=== PATIENT | male | born 1995 | race Hispanic/Latino ===

== ENCOUNTER 2024-07-02 16:40 | Emergency (ER) | payer OTHER ==
[~2024-07-02] VITALS: Ht 167.6 cm; Wt 111.1 kg
[2024-07-02] MEDS: ketOROlac 60 MG VIAL (30MG/ML) IM ONE (17:30)
[2024-07-02] MEDS: DIPH,PERTUSS(ACELL),TET VAC/PF 0.5 ML VIAL IM ONE (17:30)
--- NOTE | 2024-07-02 17:46 | HMCIMG ---
TIBIA/FIBULA 2VWS LT HISTORY: Pain COMPARISON: None TECHNIQUE: 4 images of left tibia and fibula were obtained. FINDINGS: There is no acute displaced fracture or dislocation. IMPRESSION: 1. Findings as described above.
--- NOTE | 2024-07-02 17:47 | HMCIMG ---
KNEE 3VWS LT HISTORY: Pain COMPARISON: None TECHNIQUE: 3 images of left knee were obtained. FINDINGS: There is no acute displaced fracture or dislocation. Minimal degenerative changes are seen. IMPRESSION: 1. Findings as described above.
--- NOTE | 2024-07-02 17:58 | ERN ---
ED Note History of Present Illness Stated Complaint: LEG INJURY Chief Complaint: Abrasion Time Seen by MD: 16:55 Time Seen by Midlevel: 16:55 Dictation: The Patient is a 28-year-old male who presents to the emergency department with complaints of left lower leg pain after he accidentally when in through a would porch about 30 minutes prior to arrival. Patient denies any other injuries. Reports complaints of left knee pain and left lower leg pain Allergies: Coded Allergies: No Known Drug Allergies (Unverified Allergy, Unknown, 07/02/24) Past Medical History Past Medical History: No Pertinent History Surgical History: None RN Note Reviewed/Agreed w/PFSH: Yes Review of System Dictation Constitutional: Negative for fever,chills, and weight loss Eyes: Negative for injury, pain,redness, and discharge ENT: Negative for injury,pain or swelling Cardiovascular: Negative for chest pain, palpitations, and edema Respiratory: Negative for shortness of breath, cough, and wheezing, Abdomen/GI: Negative for abdominal pain, nausea, vomiting, diarrhea, and constipation Back: Negative for injury and pain : Negative for injury, bleeding and discharge MS/Extremity: Negative for injury and deformity positive for left lower leg pain Skin: Negative for rash, and discoloration positive for abrasion of left lower leg Neuro: Negative for headache, weakness, numbness, tingling, and seizure Psych: Negative for suicide ideation, homicidal ideation, and hallucinations Initial Vital Sign VS Vital Signs Date Time Temp Pulse Resp B/P (MAP) Pulse Ox O2 Delivery O2 Flow Rate FiO2 07/02/24 16:48 97.5 89 16 137/94 98 Room Air 0 Physical Exam Dictation Vital Signs reviewed General Appearance: Alert, oriented x 3, no acute distress, well developed, nourished. Head and Face: non-traumatic. Eyes: PERRL, pink conjunctivas, eyelid no trauma, anterior chamber with arcus senilis. Ears: Pinnas intact and no signs of trauma or erythema ear canals clear and no discharge TM no erythema Nose: No discharge, no bleeding. Oropharynx: Mouth normal, tongue pink. pharynx clear,no erythema, tonsils no exudates, no abscesses noted, mucous membrane moist Neck: Supple, non-tender, no thyromegaly, no masses, no JVD, no bruits Breast:Deferred Chest:No tenderness, no crepitus, no paradoxical movement, no retractions Lungs:Clear, well-ventilated, symmetric, no rales, no wheezing, no rhonchi, no stridor, good breath sounds bilaterally Heart: Regular rate, regular rhythm, no murmur, no gallops Vascular: no peripheral edema, dorsalis pedis 3+ bilaterally Abdomen: Soft, positive bowel sounds, nondistended, no guarding, nontender, no rebound, no masses no hepatomegaly, no splenomegaly, no Glass's sign, no hernias. Rectal: Deferred Genital: Deferred Neurological: Normal speech, motor function intact, sensory function intact Musculoskeletal: Neck nontender, full range of motion, back nontender, full range of motion, Extremities: nontender, full range of motion , Skin: Color pink, dry, no turgor, no rash, no lacerations,, no contusions. Abrasion noted to left lower leg, no active bleeding Lymphatic: Deferred Results (Laboratory/Radiology) Laboratory/Radiology REASON: pain, injury ORDERING PHYSICIAN: [facility] [employer] PROCEDURE: KNEE 3V LT - KNEE 3VWS LT KNEE 3VWS LT HISTORY: Pain COMPARISON: None TECHNIQUE: 3 images of left knee were obtained. FINDINGS: There is no acute displaced fracture or dislocation. Minimal degenerative changes are seen. IMPRESSION: 1. Findings as described above. REASON: pain, injury ORDERING PHYSICIAN: [facility] [employer] [facility] PROCEDURE: TIBFIB LT - TIBIA/FIBULA 2VWS LT TIBIA/FIBULA 2VWS LT HISTORY: Pain COMPARISON: None TECHNIQUE: 4 images of left tibia and fibula were obtained. FINDINGS: There is no acute displaced fracture or dislocation. IMPRESSION: 1. Findings as described above. Labs Reviewed?: Yes ED Course ED Course Orders Procedure Category Date Status Time Knee 3vws Lt RAD 07/02/24 Resulted 17:03 Tibia/Fibula 2vws Lt RAD 07/02/24 Resulted 17:03 Diph,Pertuss(Acell),Tet PHA 07/02/24 Complete Vac/Pf (Tdap) 17:30 Wound Care (Er) CPOE 07/02/24 Transmitted 17:03 Ketorolac 60mg/2ml PHA 07/02/24 Complete (Toradol 60mg/2ml) 17:30 Current Medications Medications (Trade) Dose Ordered Sig/Carissa Route PRN Reason Start Time Stop Time Status Last Admin Dose Admin Diphtheria/ Tetanus/Acell Pertussis (Tdap) 0.5 ml ONCE ONCE IM 07/02/24 17:30 07/02/24 17:31 DC Ketorolac Tromethamine (toRADol 60MG/ 2ML) 60 mg ONCE ONCE IM 07/02/24 17:30 07/02/24 17:31 DC Vital Signs Date Time Temp Pulse Resp B/P (MAP) Pulse Ox O2 Delivery O2 Flow Rate FiO2 07/02/24 16:48 97.5 89 16 137/94 98 Room Air 0 Medical Decision Making MDM The Patient is a 28-year-old male who presents to the emergency department with complaints of left lower leg pain after he accidentally when in through a would porch about 30 minutes prior to arrival. Patient denies any other injuries. Reports complaints of left knee pain and left lower leg pain X-ray showed no acute fractures or dislocation. Patient's wound cleaned. Patient updated with Tdap. No need for repair of skin. Patient will be discharged to follow up with primary doctor. Differential diagnosis: Abrasion, tib-fib fracture, knee dislocation Need for hospitalization: Patient does not meet criteria for hospitalization. There are no social concerns with this patient. DX & DISP Disposition: Discharge Departure Impression: Primary Impression: Abrasion, left lower leg, initial encounter Condition: Stable Additional Instructions: Please follow up with the primary doctor in 1-2 days. Please return to ER if symptoms worsen FOLLOW-UP WITH PRIMARY CARE PROVIDER IN 1 TO 2 DAYS. TAKE MEDICATIONS DIRECTED HERE IN THE EMERGENCY ROOM. OKAY TO CONTINUE HOME MEDICATIONS UNLESS OTHERWISE DISCUSSED DURING YOUR VISIT IN THE EMERGENCY ROOM TODAY. RETURN TO YOUR NEAREST EMERGENCY ROOM IF SYMPTOMS WORSEN OR IF THERE IS NO IMPROVEMENT. CALL 911 IF YOU NEED IMMEDIATE ASSISTANCE. TAKE TYLENOL OR MOTRIN [id number] NEEDED AND IF NO CONTRAINDICATIONS ARE PRESENT. INCREASE ORAL HYDRATION. A WOUND CULTURE OR URINE CULTURE WAS ORDERED HERE IN THE EMERGENCY ROOM DEPARTMENT PLEASE FOLLOW-UP WITH PRIMARY CARE PROVIDER AND ADVISE THEM TO GET REPEAT PORTS FROM OUR FACILITY. IF YOU HAD ANY CANDELARIO WRAP/SPLINTS THAT WERE APPLIED HERE, PLEASE DO NOT REMOVE THEM UNTIL YOU SEE YOUR PRIMARY CARE OR SPECIALTY. Referrals: SELF,REFERRAL (PCP) Time of Disposition: 17:57 I have reviewed the case, and I agree with, Diagnosis and Plan [employer] [employer] Jul 02, 2024 17:58
[2024-07-02 21:10] VITALS: BP 132/62; PULSE 78; RESP 18; TEMP 97.8; O2SAT 98
== END 2024-07-02 21:31 | disposition home or self-care (01) ==
LOC: EDH 16:40
DX: S80.812A Abrasion, left lower leg, initial encounter (principal); X58.XXXA Exposure to other specified factors, initial encounter; Y93.89 Activity, other specified; Y92.89 Other specified places as the place of occurrence of the external cause; Y99.8 Other external cause status
CPT/HCPCS: 99284; 90715; 73562; 73590; 96372; 90471; J1885